=== PATIENT | female | born 1985 | race African-American/Black ===

== ENCOUNTER 2017-03-16 23:31 | Emergency (ER) | payer SELFPAY ==
[2017-03-16] MEDS ORDERED: Dexamethasone 4 mg/ml Vial ONE (23:58)
[2017-03-16] MEDS ORDERED: diphenhydrAMINE 50 MG/ML VIAL ONE (23:58)
== END 2017-03-17 00:12 | disposition home or self-care (01) ==
LOC: ERS 23:31
DX: L50.9 Urticaria, unspecified (principal); T39.015A Adverse effect of aspirin, initial encounter; J45.909 Unspecified asthma, uncomplicated
CPT/HCPCS: 96372; J1100; J1200